=== PATIENT | female | born 2005 | race Caucasian/White ===

== ENCOUNTER 2024-10-16 14:00 | Outpatient (RCR) | payer MEDICAID, SELFPAY ==
--- NOTE | 2024-09-28 10:20 | PTNOTE_ITS ---
PT OP Initial Eval Patient Information Outpatient Physical Therapy Treatment Date: 09/28/24 Visit Reasons: Sprain of Right Elbow Medical Diagnosis: Right Elbow Sprain Treatment Dx #1: Right Elbow Pain Start of Care: 09/28/24 Date of Onset: 2 years ago Smoking Status Smoking Status: Never smoker Initial Assessment Subjective: Pt is a 18 y/o female reports of chronic right elbow pain (7/10) with numbness down her arms after she fell on it. Pt's past imaging negative. Pt has limitation with sleeping, chores, gripping, cooking, cleaning, and performing recreational activities. 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 Pt will benefit from physical therapy to increase strength and work on mobility. 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
--- NOTE | 2024-10-08 11:01 | PT.ODAYNRPT ---
PT Outpatient Daily Note OP Daily Note Outpatient Physical Therapy Treatment Date: 10/08/24 Visit Reasons: Sprain of Right Elbow Subjective: Pt's elbow continues to hurt with intermittent numbness down ring and pinky fingers. Objective: Please see flow chart for list of ther ex performed Assessment: heat with pain; cues to pace with hand exercises to decrease fatigue Plan: Continue with PT Length of Time (minutes) of Treatment: 30 Minutes Procedure Charges Therapeutic Exercise 30 minutes: Yes
--- NOTE | 2024-10-10 15:08 | PT.ODAYNRPT ---
PT Outpatient Daily Note OP Daily Note Outpatient Physical Therapy Treatment Date: 10/10/24 Visit Reasons: Sprain of Right Elbow Subjective: Pt's elbow felt okay after last session. Pt still has intermittent pain down the arm. Objective: Please see flow chart for list of ther ex performed Assessment: minimal change in pain post PT session. Pt tolerate all exercises instructed today Plan: Continue with PT Length of Time (minutes) of Treatment: 30 Minutes Procedure Charges Therapeutic Exercise 30 minutes: Yes
--- NOTE | 2024-10-16 14:44 | PT.ODAYNRPT ---
PT Outpatient Daily Note OP Daily Note Outpatient Physical Therapy Treatment Date: 10/16/24 Visit Reasons: Sprain of Right Elbow Subjective: Pt's pain is the same, however, has not experience much of the numbness in her elbow. Objective: Please see flow chart for list of ther ex performed Assessment: stopped nerve flossing since no further reported radicular pain down to the hand; patient advised to continue as HEP. Increasing hand exercises with good tolerance Plan: Continue with PT Length of Time (minutes) of Treatment: 30 Minutes Procedure Charges Therapeutic Exercise 30 minutes: Yes
== END 2024-10-20 23:59 | disposition home or self-care (01) ==
LOC: CPTX 14:00
PROVIDERS: PCP Orthopaedic Surgery; Referring Provider Orthopaedic Surgery; Visit Provider Orthopaedic Surgery
DX: M25.521 Pain in right elbow (principal); R20.0 Anesthesia of skin; R53.1 Weakness; S53.401D Unspecified sprain of right elbow, subsequent encounter; W19.XXXD Unspecified fall, subsequent encounter
CPT/HCPCS: 97110; 97162

== ENCOUNTER 2024-10-24 15:00 | Outpatient (RCR) | payer MEDICAID, SELFPAY ==
--- NOTE | 2024-10-22 15:53 | PT.ODAYNRPT ---
PT Outpatient Daily Note OP Daily Note Outpatient Physical Therapy Treatment Date: 10/22/24 Visit Reasons: Sprain of right elbow Subjective: Pt's elbow is about the same. Pt mention heat helps her pain. Objective: Please see flow chart for list of ther ex perfromed Assessment: no change in overall pain, however, post heat helps decrease pain after therapy session Plan: Continue with PT Length of Time (minutes) of Treatment: 30 Minutes Procedure Charges Therapeutic Exercise 30 minutes: Yes
--- NOTE | 2024-10-24 14:48 | PTNOTE_ITS ---
PT OP Progress/Discharge Note Date of Service: 10/24/24 Progress Note/DC Note Progress Note/Discharge Note: DC Note Patient Information Visit Reasons: Sprain of right elbow Medical Diagnosis: Right Elbow Sprain Treatment Dx #1: Right Elbow Pain Service Continue Service or Discharge: Discharge Discharge Date: 10/24/24 Status Subjective: Pt's elbow continues to be the same no change since starting physical therapy. Pt notice decrease numbness and improved strength. Due to pain Pt still has limitation with ADLs. 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 Pt will no longer benefit from physical therapy due to plateau towards goals. Pt was instructed on HEP during her last session and educated to continue to maintain overall mobility. Pt performed all exercises safely, thank you for your referrals. Plan: D/C home with HEP and follow up with MD AYON Procedure Charges Therapeutic Exercise 30 minutes: Yes
== END 2024-11-20 23:59 | disposition home or self-care (01) ==
LOC: CPTX 15:00
PROVIDERS: PCP Orthopaedic Surgery; Referring Provider Orthopaedic Surgery; Visit Provider Orthopaedic Surgery
DX: M25.521 Pain in right elbow (principal); R20.0 Anesthesia of skin; R53.1 Weakness; G89.29 Other chronic pain
CPT/HCPCS: 97110